=== PATIENT | male | born 1975 | race Two or more races ===

== ENCOUNTER 2017-07-15 12:53 | Inpatient (IN) | payer OTHER ==
[2017-07-15 16:28] VITALS: BMI 26.4
--- NOTE | 2017-07-15 16:48 | HP ---
COWS - Scale Resting Pulse: 0= SD 80 or Below Sweatin=Flushed/Facial Moisture Restless Observation: 1= Difficult to Sit Still Pupil Size: 0= Normal to Room Light Bone or Joint Aches: 2= Severe Diffuse Aches Runny Nose/ Eye Tearin= Runny Nose/Eyes GI Upset > 30mins: 2= Nausea/Diarrhea Tremor Observation: 2= Slight Tremor Visible Yawning Observation: 2= >3x During Session Anxiety or Irritability: 2=Irritable/Anxious Goose Flesh Skin: 3=Piloerection COWS Score: 18 Admission ROS [facility] Chief Complaint: I am here for detox. Allergies/Adverse Reactions: Allergies Allergy/AdvReac Type Severity Reaction Status Date / Time No Known Allergies Allergy Verified 07/15/17 16:36 History of Present Illness: pt is a 42ry old male with a history of heroin and cocaine dependence seeking detox for treatment. Exam Limitations: No Limitations - Ebola screening Have you traveled outside of the country in the last 21 days: No (N) Have you had contact with anyone from an Ebola affected area: No Have you been sick,other than usual withdrawal symptoms: No Do you have a fever: No - Review of Systems Constitutional: Chills, Loss of Appetite, Changes in sleep, Unintentional Wgt. Loss EENT: reports: Tearing, Nose Congestion Respiratory: reports: No Symptoms reported Cardiac: reports: No Symptoms Reported GI: reports: Diarrhea, Nausea, Poor Appetite, Poor Fluid Intake : reports: No Symptoms Reported Musculoskeletal: reports: No Symptoms Reported Integumentary: reports: Flushing, Sweating Neuro: reports: Headache, Tingling, Tremors Endocrine: reports: Excessive Sweating, Flushing, Intolerance to Cold, Intolerance to Heat Hematology: reports: No Symptoms Reported Psychiatric: reports: Judgement Intact, Mood/Affect Appropiate, Orientated x3, Agitated, Anxious Other Systems: Reviewed and Negative Patient History - Patient Medical History Hx Anemia: No Hx Asthma: No Hx Chronic Obstructive Pulmonary Disease (COPD): No Hx Cancer: No Hx Cardiac Disorders: No Hx Congestive Heart Failure: No Hx Hypertension: No Hx Hypercholesterolemia: No Hx Pacemaker: No HX Cerebrovascular Accident: No Hx Seizures: No Hx Dementia: No Hx Diabetes: No Hx Gastrointestinal Disorders: No Hx Liver Disease: No Hx Genitourinary Disorders: No Hx Sexually Transmitted Disorders: No Hx Renal Disease (ESRD): No Hx Thyroid Disease: No Hx Human Immunodeficiency Virus (HIV): No (negative) Hx Hepatitis C: No Hx Depression: No Hx Suicide Attempt: No (denies) Hx Bipolar Disorder: No Hx Schizophrenia: No Other Medical History: anxiety - Patient Surgical History Past Surgical History: No - PPD History Previous Implant?: Yes Documented Results: Negative w/o proof Implanted On Prior [facility] Admission?: No PPD to be Administered?: Yes - Reproductive History Patient is a Female of Child Bearing Age (11 -55 yrs old): No - Smoking Cessation Smoking history: Current every day smoker Have you smoked in the past 12 months: Yes Aproximately how many cigarettes per day: 10 Hx Chewing Tobacco Use: No Initiated information on smoking cessation: Yes 'Breaking Loose' booklet given: 07/15/17 - Substance & Tx. History Hx Alcohol Use: No Hx Substance Use: Yes Substance Use Type: Cocaine, Heroin Hx Substance Use Treatment: Yes (last detox 1999 [facility]) - Substances Abused Heroin Route: Injection Frequency: Daily Amount used: 7 bags Age of first use: 20 Date of Last Use: 07/15/17 Cocaine Route: Injection Frequency: Daily Amount used: $70 Age of first use: 17 Date of Last Use: 07/14/17 Family Disease History - Family Disease History Family History: Denies Admission Physical Exam S - Vital Signs Vital Signs: Vital Signs - 24 hr 07/15/17 16:25 Temperature 97.4 F L Pulse Rate 74 Respiratory 19 Rate Blood Pressure 118/67 - Physical General Appearance: Yes: Appropriately Dressed, Moderate Distress, Tremorous, Irritable, Sweating, Anxious HEENTM: Yes: Hearing grossly Normal, Normal Voice, Nasal Congestion, Rhinorrhea Respiratory: Yes: Lungs Clear, Normal Breath Sounds, No Respiratory Distress Neck: Yes: No masses,lesions,Nodules Breast: Yes: Within Normal Limits Cardiology: Yes: Regular Rhythm, Regular Rate, S1, S2 Abdominal: Yes: Normal Bowel Sounds, Non Tender, Soft Genitourinary: Yes: Within Normal Limits Back: Yes: Normal Inspection Musculoskeletal: Yes: Back pain Extremities: Yes: Normal Capillary Refill, Normal Inspection, Tremors Neurological: Yes: Fully Oriented, Alert, Normal Response Integumentary: Yes: Normal Color, Diaphoresis, Track [place] Lymphatic: Yes: Within Normal Limits - Diagnostic (1) Opioid dependence with withdrawal Current Visit: Yes Status: Chronic (2) Cocaine dependence Current Visit: Yes Status: Chronic Qualifiers: Substance use status: uncomplicated Qualified Code(s): F14.20 - Cocaine dependence, uncomplicated (3) Nicotine dependence Current Visit: Yes Status: Chronic Qualifiers: Nicotine product type: cigarettes Substance use status: uncomplicated Qualified Code(s): F17.210 - Nicotine dependence, cigarettes, uncomplicated Cleared for Admission S - Detox or Rehab [facility] Level of Care: Medically Managed Detox Regimen/Protocol: Methadone [facility] Breath Alcohol Content Breath Alcohol Content: 0 Urine Drug Screen - Results Drug Screen Negative: No Urine Drug Screen Results: LIANG-Cocaine, OPI-Opiates
[2017-07-15] MEDS ORDERED: MAG HYDROX/AL HYDROX/SIMETH 30 ML UNIT-DOSE CUP PO PRN (16:49)
[2017-07-15] MEDS ORDERED: MAGNESIUM CITRATE 300 ML BOTTLE PO PRN (16:49)
[2017-07-15] MEDS ORDERED: ACETAMINOPHEN 325 MG TABLET (FP) PO PRN (16:49)
[2017-07-15] MEDS ORDERED: LOPERAMIDE HCL 2 MG CAPSULE PO PRN (16:49)
[2017-07-15] MEDS ORDERED: P-EPHED 60MG/TRIPROLIDI 2.5MG TABLET PO PRN (16:49)
[2017-07-15] MEDS ORDERED: IBUPROFEN 400 MG TABLET (FP) PO PRN (16:49)
[2017-07-15] MEDS ORDERED: NICOTINE POLACRILEX 4 MG GUM BC PRN (16:49)
[2017-07-15] MEDS ORDERED: guaiFENesin/D-METHORPHAN HB 10 ML UNIT-DOSE CUPS PO PRN (16:49)
[2017-07-15] MEDS ORDERED: MAGNESIUM HYDROX 2400MG/30ML ORAL SUSPENSION 30 ML CUP PO PRN (16:49)
[2017-07-15] MEDS ORDERED: MENTHOL/PHENOL 1 EACH UD MM PRN (16:49)
[2017-07-15] MEDS: diazePAM 5 MG TABLET PO PRN ×2 (18:14→22:15)
[2017-07-15] MEDS ORDERED: METHADONE HCL 10 MG TABLET (FOR DETOX USE ONLY) PO ONE ×2 (18:15→23:00)
[2017-07-15] MEDS: THIAMINE HCL 100 MG TABLET (FP) PO SCH (22:15)
[2017-07-15 23:20] LABS: URINE APPEARANCE TURBID; URINE BILIRUBIN NEGATIVE (NEGATIVE); URINE BLOOD NEGATIVE (NEGATIVE); URINE COLOR YELLOW; URINE GLUCOSE (UA) NEGATIVE (NEGATIVE); URINE KETONE 1+ (NEGATIVE); URINE LEUK ESTERASE NEGATIVE (NEGATIVE); URINE NITRITE NEGATIVE (NEGATIVE); URINE PROTEIN NEGATIVE (NEGATIVE); URINE UROBILINOGEN NEGATIVE mg/dL (0.2-1.0)
[2017-07-16] MEDS: diazePAM 5 MG TABLET PO PRN ×5 (02:08→22:05)
[2017-07-16] MEDS ORDERED: METHADONE HCL 10 MG TABLET (FOR DETOX USE ONLY) PO ONE (10:00)
[2017-07-16] MEDS: NICOTINE 21 MG/24 HOURS TOPICAL PATCH TD SCH (10:02)
[2017-07-16] MEDS: PRENATAL VITAMINS W/ FOLIC ACID TABLET (FP) PO SCH (10:02)
[2017-07-16 10:34] LABS: ALBUMIN 3.3 g/dl (3.4-5.0); ANION GAP 8 (8-16); BLOOD UREA NITROGEN 16 mg/dL (7-18); CHLORIDE 105 mmol/L (98-107); CO2 27 mmol/L (21-32); GLUCOSE,RANDOM 97 mg/dL (74-106); POTASSIUM 3.7 mmol/L (3.5-5.1); SODIUM 140 mmol/L (136-145)
[2017-07-16 10:38] LABS: HEMATOCRIT 41.9 % (35.4-49); HEMOGLOBIN 13.9 GM/dL (11.7-16.9); MCH 32.8 pg (25.7-33.7); MCHC 33.2 g/dl (32.0-35.9); MEAN CELL VOLUME 98.6 fl (80-96); MEAN PLT VOLUME 10.5 fl (7.5-11.1); PLATELET COUNT 142 K/MM3 (134-434); RBC 4.25 M/mm3 (4.00-5.60); RDW 12.5 % (11.9-15.9); WHITE BLOOD COUNT 5.8 K/mm3 (4.0-10.0)
[2017-07-16 10:42] LABS: ALK PHOS 96 U/L (45-117); BILIRUBIN,TOTAL 0.3 mg/dL (0.2-1.0); CALCIUM 8.4 mg/dL (8.5-10.1); CREATININE 0.8 mg/dL (0.7-1.3); SGOT/AST 18 U/L (15-37); SGPT/ALT 28 U/L (12-78); TOT PROT 6.8 g/dl (6.4-8.2)
--- NOTE | 2017-07-16 10:45 | EKG ---
Test Reason : Blood Pressure : / mmHG Vent. Rate : 064 BPM Atrial Rate : 064 BPM P-R Int : 126 ms QRS Dur : 086 ms QT Int : 394 ms P-R-T Axes : 065 072 051 degrees QTc Int : 406 ms NORMAL SINUS RHYTHM MODERATE VOLTAGE CRITERIA FOR LVH, MAY BE NORMAL VARIANT BORDERLINE ECG NO PREVIOUS ECGS AVAILABLE Confirmed by SWAPNIL TRIPP MD ([id number]) on 07/16/2017 10:44:51 AM Referred By: Confirmed By:SWAPNIL TRIPP MD
--- NOTE | 2017-07-16 11:32 | PN ---
BHS COWS - Scale Resting Pulse: 1= [place] 81-100 Sweatin= Chills/Flushing Restless Observation: 0= Sits Still Pupil Size: 0= Normal to Room Light Bone or Joint Aches: 2= Severe Diffuse Aches Runny Nose/ Eye Tearin= None GI Upset > 30mins: 1= Stomach Cramp Tremor Observation of Outstretched Hands: 2= Slight Tremor Visible Yawning Observation: 1= 1-2x During Session Anxiety or Irritability: 2=Irritable/Anxious Goose Flesh Skin: 3=Piloerection COWS Score: 13 BHS Progress Note (SOAP) Subjective: Sweating, Tremors, Body Aches. Objective: PT. A & O X 3, OBSERVED AMBULATING ON UNIT. NO ACUTE DISTRESS. 07/16/17 11:30 Vital Signs Temperature 97.1 F L 07/16/17 09:22 Pulse Rate 81 07/16/17 09:22 Respiratory Rate 18 07/16/17 09:22 Blood Pressure 121/75 07/16/17 09:22 O2 Sat by Pulse Oximetry (%) Laboratory Tests 07/15/17 07/16/17 07/16/17 19:50 07:00 07:00 WBC 5.8 RBC 4.25 Hgb 13.9 Hct 41.9 MCV 98.6 H MCH 32.8 MCHC 33.2 RDW 12.5 Plt Count 142 MPV 10.5 Sodium 140 Potassium 3.7 Chloride 105 Carbon Dioxide 27 Anion Gap 8 BUN 16 Creatinine 0.8 Creat Clearance w eGFR > 60 Random Glucose 97 Calcium 8.4 L Total Bilirubin 0.3 AST 18 ALT 28 Alkaline Phosphatase 96 Total Protein 6.8 Albumin 3.3 L Urine Color Yellow Urine Appearance Turbid Urine pH 5.0 Ur Specific [place] 1.026 Urine Protein Negative Urine Glucose (UA) Negative Urine Ketones 1+ H Urine Blood Negative Urine Nitrite Negative Urine Bilirubin Negative Urine Urobilinogen Negative Ur Leukocyte Esterase Negative LABS NOTED. RPR RESULT PENDING. 07/16/17 11:31 Assessment: 07/16/17 11:30 WITHDRAWAL SYMPTOMS. Plan: CONTINUE DETOX.
--- NOTE | 2017-07-16 16:31 | CONSULT ---
[facility] Psychiatric Consult - Data Date of interview: 07/16/17 Admission source: [facility] Identifying data: Pt. is a 42 year old scottish male, single, without kids, and currently unemployed. This is patient's first admission to [facility]. Pt. admitted to for cocaine and heroin dependency. Substance Abuse History: Following information confirmed with Mr. Myers: Smoking Cessation. Smoking history: Current every day smoker. Have you smoked in the past 12 months: Yes. Aproximately how many cigarettes per day: 10. Hx Chewing Tobacco Use: No. Initiated information on smoking cessation: Yes. ' Breaking Loose' booklet given: 07/15/17. - Substance & Tx. History. Hx Alcohol Use: No. Hx Substance Use: Yes. Substance Use Type: Cocaine, Heroin. Hx Substance Use Treatment: Yes (last detox 1999 [facility]). - Substances Abused. Heroin. Route: Injection. Frequency: Daily. Amount used: 7 bags. Age of first use: 20. Date of Last Use: 07/15/17. Cocaine. Route: Injection. Frequency: Daily. Amount used: $70. Age of first use: 17. Date of Last Use: 07/14/17 Medical History: Denies. Psychiatric History: Pt. denies h/o psychiatric hospitalization and suicide attempt. States his first encounter with a psychiatrist was 15 years ago and is currently provided psychiatric care at the [facility]. Pt. reports a dignosis of Bipolar disorder, mood disorder and anxiety. States he is prescribed seroquel 100mg and another medication he is unable to remember. Physical/Sexual Abuse/Trauma History: Denies. Mental Status Exam - Mental Status Exam Alert and Oriented to: Time, Place, Person Cognitive Function: Good Patient Appearance: Unkempt Mood: Euthymic Affect: Mood Congruent Patient Behavior: Fatigued, Cooperative Speech Pattern: Delayed Voice Loudness: Normal Thought Process: Goal Oriented Thought Disorder: Not Present Hallucinations: Denies Suicidal Ideation: Denies Homicidal Ideation: Denies Insight/Judgement: Poor Sleep: Poorly Appetite: Fair Muscle strength/Tone: Normal Gait/Station: Normal Psychiatric Findings - Problem List ([place] 1, 2,3) (1) Cocaine dependence Current Visit: Yes Status: Acute Qualifiers: Substance use status: uncomplicated Qualified Code(s): F14.20 - Cocaine dependence, uncomplicated (2) Nicotine dependence Current Visit: Yes Status: Chronic Qualifiers: Nicotine product type: cigarettes Substance use status: uncomplicated Qualified Code(s): F17.210 - Nicotine dependence, cigarettes, uncomplicated (3) Opioid dependence with withdrawal Current Visit: Yes Status: Acute (4) Bipolar disorder Current Visit: Yes Status: Chronic Comment: Self reports. (5) Mood disorder Current Visit: No Status: Chronic Comment: Self reports. - Initial Treatment Plan Initial Treatment Plan: Psychoeducation provided. Detoxification provided. Seroquel 50mg qhs ordered. Benefits and side effects discussed. Verbal consent given. Will continue to monitor.
[2017-07-16] MEDS: hydrOXYzine PAMOATE 50 MG CAPSULE (FP) PO PRN (17:49)
[2017-07-16] MEDS: QUEtiapine FUMARATE 50 MG TABLET PO SCH (22:05)
[2017-07-16] MEDS: THIAMINE HCL 100 MG TABLET (FP) PO SCH (22:05)
[2017-07-17] MEDS ORDERED: METHADONE HCL 5 MG TABLET (FOR DETOX USE ONLY) PO ONE (10:00)
[2017-07-17] MEDS: diazePAM 5 MG TABLET PO PRN ×4 (10:05→22:02)
[2017-07-17] MEDS: PRENATAL VITAMINS W/ FOLIC ACID TABLET (FP) PO SCH (10:05)
[2017-07-17] MEDS: NICOTINE 21 MG/24 HOURS TOPICAL PATCH TD SCH (10:06)
--- NOTE | 2017-07-17 11:39 | PN ---
S COWS - Scale Resting Pulse: 1= [place] 81-100 Sweatin= Chills/Flushing Restless Observation: 1= Difficult to Sit Still Pupil Size: 0= Normal to Room Light Bone or Joint Aches: 2= Severe Diffuse Aches Runny Nose/ Eye Tearin= Nasal Congestion GI Upset > 30mins: 0= None Tremor Observation of Outstretched Hands: 2= Slight Tremor Visible Yawning Observation: 1= 1-2x During Session Anxiety or Irritability: 2=Irritable/Anxious Goose Flesh Skin: 3=Piloerection COWS Score: 14 BHS Progress Note (SOAP) Subjective: Sweating, Tremors, Body Aches. Objective: PT. A & O X 3. NO ACUTE DISTRESS. 07/17/17 11:40 Vital Signs Temperature 96.1 F L 07/17/17 09:11 Pulse Rate 82 07/17/17 09:11 Respiratory Rate 18 07/17/17 09:11 Blood Pressure 127/75 07/17/17 09:11 O2 Sat by Pulse Oximetry (%) Laboratory Tests 07/15/17 07/16/17 07/16/17 19:50 07:00 07:00 WBC 5.8 RBC 4.25 Hgb 13.9 Hct 41.9 MCV 98.6 H MCH 32.8 MCHC 33.2 RDW 12.5 Plt Count 142 MPV 10.5 Sodium 140 Potassium 3.7 Chloride 105 Carbon Dioxide 27 Anion Gap 8 BUN 16 Creatinine 0.8 Creat Clearance w eGFR > 60 Random Glucose 97 Calcium 8.4 L Total Bilirubin 0.3 AST 18 ALT 28 Alkaline Phosphatase 96 Total Protein 6.8 Albumin 3.3 L Urine Color Yellow Urine Appearance Turbid Urine pH 5.0 Ur Specific [place] 1.026 Urine Protein Negative Urine Glucose (UA) Negative Urine Ketones 1+ H Urine Blood Negative Urine Nitrite Negative Urine Bilirubin Negative Urine Urobilinogen Negative Ur Leukocyte Esterase Negative RPR Titer 07/16/17 07:00 WBC RBC Hgb Hct MCV MCH MCHC RDW Plt Count MPV Sodium Potassium Chloride Carbon Dioxide Anion Gap BUN Creatinine Creat Clearance w eGFR Random Glucose Calcium Total Bilirubin AST ALT Alkaline Phosphatase Total Protein Albumin Urine Color Urine Appearance Urine pH Ur Specific [place] Urine Protein Urine Glucose (UA) Urine Ketones Urine Blood Urine Nitrite Urine Bilirubin Urine Urobilinogen Ur Leukocyte Esterase RPR Titer Nonreactive LABS NOTED. Assessment: 07/17/17 11:40 WITHDRAWAL SYMPTOMS. Plan: CONTINUE DETOX. INCREASE DAILY PO FLUID INTAKE.
[2017-07-17] MEDS: THIAMINE HCL 100 MG TABLET (FP) PO SCH (22:02)
[2017-07-17] MEDS: QUEtiapine FUMARATE 50 MG TABLET PO SCH (22:02)
[2017-07-18] MEDS: diazePAM 5 MG TABLET PO PRN ×3 (05:09→14:38)
[2017-07-18] MEDS ORDERED: METHADONE HCL 5 MG TABLET (FOR DETOX USE ONLY) PO ONE (10:00)
[2017-07-18] MEDS: NICOTINE 21 MG/24 HOURS TOPICAL PATCH TD SCH (10:44)
[2017-07-18] MEDS: PRENATAL VITAMINS W/ FOLIC ACID TABLET (FP) PO SCH (10:44)
--- NOTE | 2017-07-18 12:09 | PN ---
BHS Progress Note (SOAP) Subjective: Fatigue, Sweating, Interrupted Sleep. Objective: PT. A & O X 3, OBSERVED AMBULATING ON UNIT. NO ACUTE DISTRESS. 07/18/17 12:07 Vital Signs Temperature 98.3 F 07/18/17 09:49 Pulse Rate 101 H 07/18/17 09:49 Respiratory Rate 18 07/18/17 09:49 Blood Pressure 127/79 07/18/17 09:49 O2 Sat by Pulse Oximetry (%) Laboratory Tests 07/15/17 07/16/17 07/16/17 19:50 07:00 07:00 WBC 5.8 RBC 4.25 Hgb 13.9 Hct 41.9 MCV 98.6 H MCH 32.8 MCHC 33.2 RDW 12.5 Plt Count 142 MPV 10.5 Sodium 140 Potassium 3.7 Chloride 105 Carbon Dioxide 27 Anion Gap 8 BUN 16 Creatinine 0.8 Creat Clearance w eGFR > 60 Random Glucose 97 Calcium 8.4 L Total Bilirubin 0.3 AST 18 ALT 28 Alkaline Phosphatase 96 Total Protein 6.8 Albumin 3.3 L Urine Color Yellow Urine Appearance Turbid Urine pH 5.0 Ur Specific [place] 1.026 Urine Protein Negative Urine Glucose (UA) Negative Urine Ketones 1+ H Urine Blood Negative Urine Nitrite Negative Urine Bilirubin Negative Urine Urobilinogen Negative Ur Leukocyte Esterase Negative RPR Titer 07/16/17 07:00 WBC RBC Hgb Hct MCV MCH MCHC RDW Plt Count MPV Sodium Potassium Chloride Carbon Dioxide Anion Gap BUN Creatinine Creat Clearance w eGFR Random Glucose Calcium Total Bilirubin AST ALT Alkaline Phosphatase Total Protein Albumin Urine Color Urine Appearance Urine pH Ur Specific [place] Urine Protein Urine Glucose (UA) Urine Ketones Urine Blood Urine Nitrite Urine Bilirubin Urine Urobilinogen Ur Leukocyte Esterase RPR Titer Nonreactive LABS NOTED. Assessment: 07/18/17 12:08 WITHDRAWAL SYMPTOMS. Plan: CONTINUE DETOX. INCREASE DAILY PO FLUID INTAKE.
[2017-07-18] MEDS: hydrOXYzine PAMOATE 50 MG CAPSULE (FP) PO PRN ×2 (17:42→22:15)
[2017-07-18] MEDS: QUEtiapine FUMARATE 50 MG TABLET PO SCH (22:15)
[2017-07-18] MEDS: THIAMINE HCL 100 MG TABLET (FP) PO SCH (22:15)
[2017-07-19] MEDS ORDERED: METHADONE HCL 10 MG TABLET (FOR DETOX USE ONLY) PO ONE (10:00)
[2017-07-19] MEDS: NICOTINE 21 MG/24 HOURS TOPICAL PATCH TD SCH (10:05)
[2017-07-19] MEDS: PRENATAL VITAMINS W/ FOLIC ACID TABLET (FP) PO SCH (10:05)
--- NOTE | 2017-07-19 16:22 | PN ---
BHS Progress Note (SOAP) Subjective: Fatigue, Sweating, Interrupted Sleep. Objective: PT. A & O X 3, OBSERVED AMBULATING ON UNIT. NO ACUTE DISTRESS. 07/19/17 16:19 Vital Signs Temperature 96.4 F L 07/19/17 09:28 Pulse Rate 83 07/19/17 09:28 Respiratory Rate 18 07/19/17 13:14 Blood Pressure 122/78 07/19/17 09:28 O2 Sat by Pulse Oximetry (%) Laboratory Tests 07/15/17 07/16/17 07/16/17 19:50 07:00 07:00 WBC 5.8 RBC 4.25 Hgb 13.9 Hct 41.9 MCV 98.6 H MCH 32.8 MCHC 33.2 RDW 12.5 Plt Count 142 MPV 10.5 Sodium 140 Potassium 3.7 Chloride 105 Carbon Dioxide 27 Anion Gap 8 BUN 16 Creatinine 0.8 Creat Clearance w eGFR > 60 Random Glucose 97 Calcium 8.4 L Total Bilirubin 0.3 AST 18 ALT 28 Alkaline Phosphatase 96 Total Protein 6.8 Albumin 3.3 L Urine Color Yellow Urine Appearance Turbid Urine pH 5.0 Ur Specific [place] 1.026 Urine Protein Negative Urine Glucose (UA) Negative Urine Ketones 1+ H Urine Blood Negative Urine Nitrite Negative Urine Bilirubin Negative Urine Urobilinogen Negative Ur Leukocyte Esterase Negative RPR Titer 07/16/17 07:00 WBC RBC Hgb Hct MCV MCH MCHC RDW Plt Count MPV Sodium Potassium Chloride Carbon Dioxide Anion Gap BUN Creatinine Creat Clearance w eGFR Random Glucose Calcium Total Bilirubin AST ALT Alkaline Phosphatase Total Protein Albumin Urine Color Urine Appearance Urine pH Ur Specific [place] Urine Protein Urine Glucose (UA) Urine Ketones Urine Blood Urine Nitrite Urine Bilirubin Urine Urobilinogen Ur Leukocyte Esterase RPR Titer Nonreactive LABS NOTED. Assessment: 07/19/17 16:19 WITHDRAWAL SYMPTOMS. Plan: CONTINUE DETOX. INCREASE DAILY PO FLUID INTAKE.
[2017-07-19] MEDS: QUEtiapine FUMARATE 50 MG TABLET PO SCH (22:05)
[2017-07-19] MEDS: THIAMINE HCL 100 MG TABLET (FP) PO SCH (22:06)
[2017-07-20] MEDS ORDERED: METHADONE HCL 5 MG TABLET (FOR DETOX USE ONLY) PO ONE (06:00)
[2017-07-20] MEDS: PRENATAL VITAMINS W/ FOLIC ACID TABLET (FP) PO SCH (10:08)
[2017-07-20] MEDS: NICOTINE 21 MG/24 HOURS TOPICAL PATCH TD SCH (10:08)
--- NOTE | 2017-07-20 15:30 | PN ---
BHS Progress Note (SOAP) Subjective: Anxious, stomach ache, nausea, interrupted sleep. Objective: 07/20/17 15:29 Last Vital Signs Temp Pulse Resp BP Pulse Ox 98.7 F 87 18 117/77 07/20/17 13:19 07/20/17 13:19 07/20/17 13:19 07/20/17 13:19 Laboratory Tests 07/15/17 07/16/17 07/16/17 19:50 07:00 07:00 WBC 5.8 RBC 4.25 Hgb 13.9 Hct 41.9 MCV 98.6 H MCH 32.8 MCHC 33.2 RDW 12.5 Plt Count 142 MPV 10.5 Sodium 140 Potassium 3.7 Chloride 105 Carbon Dioxide 27 Anion Gap 8 BUN 16 Creatinine 0.8 Creat Clearance w eGFR > 60 Random Glucose 97 Calcium 8.4 L Total Bilirubin 0.3 AST 18 ALT 28 Alkaline Phosphatase 96 Total Protein 6.8 Albumin 3.3 L Urine Color Yellow Urine Appearance Turbid Urine pH 5.0 Ur Specific [place] 1.026 Urine Protein Negative Urine Glucose (UA) Negative Urine Ketones 1+ H Urine Blood Negative Urine Nitrite Negative Urine Bilirubin Negative Urine Urobilinogen Negative Ur Leukocyte Esterase Negative RPR Titer 07/16/17 07:00 WBC RBC Hgb Hct MCV MCH MCHC RDW Plt Count MPV Sodium Potassium Chloride Carbon Dioxide Anion Gap BUN Creatinine Creat Clearance w eGFR Random Glucose Calcium Total Bilirubin AST ALT Alkaline Phosphatase Total Protein Albumin Urine Color Urine Appearance Urine pH Ur Specific [place] Urine Protein Urine Glucose (UA) Urine Ketones Urine Blood Urine Nitrite Urine Bilirubin Urine Urobilinogen Ur Leukocyte Esterase RPR Titer Nonreactive Labs noted Assessment: 07/20/17 15:30 Withdrawal symptoms Plan: Continue detox Encouraged to drink more water for hydration
[2017-07-20] MEDS: QUEtiapine FUMARATE 50 MG TABLET PO SCH (22:03)
[2017-07-20] MEDS: THIAMINE HCL 100 MG TABLET (FP) PO SCH (22:03)
--- NOTE | 2017-07-21 08:45 | DS ---
[facility] Detox Discharge Summary Admission Date: 07/15/17 Discharge Date: 07/21/17 - History Present History: Opioid Dependence Additional Comments: DETOX COMPLETED. ALERT O X 3. NAD. REFERRED TO REHAB. Pertinent Past History: HX DEPRESSION - Physical Exam Results Vital Signs: Vital Signs Temperature 97.1 F L 07/21/17 06:21 Pulse Rate 69 07/21/17 06:21 Respiratory Rate 16 07/21/17 06:21 Blood Pressure 109/65 07/21/17 06:21 O2 Sat by Pulse Oximetry (%) Pertinent Admission Physical Exam Findings: WITHDRAWAL SX Laboratory Last Values WBC 5.8 K/mm3 (4.0-10.0) 07/16/17 07:00 RBC 4.25 M/mm3 (4.00-5.60) 07/16/17 07:00 Hgb 13.9 GM/dL (11.7-16.9) 07/16/17 07:00 Hct 41.9 % (35.4-49) 07/16/17 07:00 MCV 98.6 fl (80-96) H 07/16/17 07:00 MCH 32.8 pg (25.7-33.7) 07/16/17 07:00 MCHC 33.2 g/dl (32.0-35.9) 07/16/17 07:00 RDW 12.5 % (11.9-15.9) 07/16/17 07:00 Plt Count 142 K/MM3 (134-434) 07/16/17 07:00 MPV 10.5 fl (7.5-11.1) 07/16/17 07:00 Sodium 140 mmol/L (136-145) 07/16/17 07:00 Potassium 3.7 mmol/L (3.5-5.1) 07/16/17 07:00 Chloride 105 mmol/L (98-107) 07/16/17 07:00 Carbon Dioxide 27 mmol/L (21-32) 07/16/17 07:00 Anion Gap 8 (8-16) 07/16/17 07:00 BUN 16 mg/dL (7-18) 07/16/17 07:00 Creatinine 0.8 mg/dL (0.7-1.3) 07/16/17 07:00 Creat Clearance w eGFR > 60 (>60) 07/16/17 07:00 Random Glucose 97 mg/dL (74-106) 07/16/17 07:00 Calcium 8.4 mg/dL (8.5-10.1) L 07/16/17 07:00 Total Bilirubin 0.3 mg/dL (0.2-1.0) 07/16/17 07:00 AST 18 U/L (15-37) 07/16/17 07:00 ALT 28 U/L (12-78) 07/16/17 07:00 Alkaline Phosphatase 96 U/L (45-117) 07/16/17 07:00 Total Protein 6.8 g/dl (6.4-8.2) 07/16/17 07:00 Albumin 3.3 g/dl (3.4-5.0) L 07/16/17 07:00 Urine Color Yellow 07/15/17 19:50 Urine Appearance Turbid 07/15/17 19:50 Urine pH 5.0 (5.0-8.0) 07/15/17 19:50 Ur Specific [place] 1.026 (1.001-1.035) 07/15/17 19:50 Urine Protein Negative (NEGATIVE) 07/15/17 19:50 Urine Glucose (UA) Negative (NEGATIVE) 07/15/17 19:50 Urine Ketones 1+ (NEGATIVE) H 07/15/17 19:50 Urine Blood Negative (NEGATIVE) 07/15/17 19:50 Urine Nitrite Negative (NEGATIVE) 07/15/17 19:50 Urine Bilirubin Negative (NEGATIVE) 07/15/17 19:50 Urine Urobilinogen Negative mg/dL (0.2-1.0) 07/15/17 19:50 Ur Leukocyte Esterase Negative (NEGATIVE) 07/15/17 19:50 RPR Titer Nonreactive (NONREACTIVE) 07/16/17 07:00 - Treatment Hospital Course: Detox Protocol Followed, Detoxed Safely, Responded well, Discharged Condition Good, Rehab Referral Accepted Patient has Accepted a Rehab Referral to: [address] - Medication Discharge Medications: Ambulatory Orders NK [No Known Home Medication] 07/15/17 - Diagnosis (1) Cocaine dependence Current Visit: Yes Status: Acute Qualifiers: Substance use status: uncomplicated Qualified Code(s): F14.20 - Cocaine dependence, uncomplicated (2) Opioid dependence with withdrawal Current Visit: Yes Status: Acute (3) Nicotine dependence Current Visit: Yes Status: Acute Qualifiers: Nicotine product type: cigarettes Substance use status: in withdrawal Qualified Code(s): F17.213 - Nicotine dependence, cigarettes, with withdrawal - AMA Did Patient Leave Against Medical Advice: No
[2017-07-21 09:39] VITALS: BP 128/81; PULSE 91; TEMP 96.3
[2017-07-21] MEDS: PRENATAL VITAMINS W/ FOLIC ACID TABLET (FP) PO SCH (10:38)
[2017-07-21] MEDS: NICOTINE 21 MG/24 HOURS TOPICAL PATCH TD SCH (10:38)
== END 2017-07-21 11:16 | disposition other institution (70) | DRG 773 ==
LOC: YASAS 12:53 → Y3N 17:02
PROVIDERS: ADMIT Internal Medicine; ATTEND Internal Medicine
PROC: HZ2ZZZZ Detoxification Services for Substance Abuse Treatment (ICD-10-PCS; principal; 2017-07-15)
DX: F11.23 Opioid dependence with withdrawal (principal); F14.20 Cocaine dependence, uncomplicated; F17.213 Nicotine dependence, cigarettes, with withdrawal; F31.9 Bipolar disorder, unspecified; F39 Unspecified mood [affective] disorder
CPT/HCPCS: 36415; 80053; 81003; 85027; 86593; 93005; 93010

== ENCOUNTER 2017-07-21 11:11 | Inpatient (IN) | payer OTHER ==
[2017-07-21 12:40] VITALS: BMI 28.4
[2017-07-21] MEDS ORDERED: MAGNESIUM HYDROX 2400MG/30ML ORAL SUSPENSION 30 ML CUP PO PRN (12:48)
[2017-07-21] MEDS ORDERED: guaiFENesin/D-METHORPHAN HB 10 ML UNIT-DOSE CUPS PO PRN (12:48)
[2017-07-21] MEDS ORDERED: LOPERAMIDE HCL 2 MG CAPSULE PO PRN (12:48)
[2017-07-21] MEDS ORDERED: MAGNESIUM CITRATE 300 ML BOTTLE PO PRN (12:48)
[2017-07-21] MEDS ORDERED: MAG HYDROX/AL HYDROX/SIMETH 30 ML UNIT-DOSE CUP PO PRN (12:48)
[2017-07-21] MEDS ORDERED: MENTHOL/PHENOL 1 EACH UD MM PRN (12:48)
[2017-07-21] MEDS ORDERED: P-EPHED 60MG/TRIPROLIDI 2.5MG TABLET PO PRN (12:48)
--- NOTE | 2017-07-21 13:08 | PN ---
S Progress Note Note: Wants to start Suboxone will begin 4 mg last methadone 48h discussed risks of precipitated withdrawal follow up plan at [facility]
--- NOTE | 2017-07-21 13:26 | HP ---
Psychiatrist Admission - Data Date of interview: 07/21/17 Admission source: 3N Identifying data: This is the first [facility] for this 42 yeard old single [employer] male, unemployed on food stamp, domiciled living with his aunt Medical History: Significant fo hepatitis C. Smokes 10 cigarettes daily Psychiatric History: Reports that all his psychiatric contact occured while incarcerated. Claims that his first psychiatric contact was in 2003, he was diagnosed with Mood Disorder, depression and anxiety and he was prescribed Remeron, Ambien, Vistaril and Buspar. His last psychiatric contact was when he was incarcerated in [facility]. He was released in May on Risperdal and Ambien. He has been off medication since release. He saw [facility] psych on 07/16/17 while in detox and was prescribed Seroquel 100 mg po HS.He told him that he was prescribed that medication by a psychiatrist at the [facility]. Denies previous psychiatric hospitalization or suicidal attempt. At present, reports feeling anxious and sleping poorly despite taking Seroquel 50 mg po HS Physical/Sexual Abuse/Trauma History: Denies history of verbal, physical or sexual abuse as well as DV relationship Additional Comment: Reports history of multiple previous arrests including 4 felony convictions. Reports being on parole till August 2018 Vital Signs: Vital Signs - 24 hr 07/21/17 12:27 Temperature 97.1 F L Pulse Rate 86 Respiratory 18 Rate Blood Pressure 135/82 Allergies/Adverse Reactions: Allergies Allergy/AdvReac Type Severity Reaction Status Date / Time No Known Allergies Allergy Verified 07/21/17 12:24 Date of last physical exam: 07/15/17 Concur with the findings of this exam: Yes - Substance Abuse/Tx History Hx Alcohol Use: No Hx Substance Use: Yes Substance Use Type: Cocaine (Started using cocaine at age 17, consumes $70 worth daily. Last used on 07/14/17), Heroin (Started using herin at age 20, consumes 7 bags daily. Last used on 07/15/17), Tranquilizers (Started using klonopin at age 16, consumes 1-2 tabs 1-2 times weekly. Last on ) Mental Status Exam - Mental Status Exam Alert and Oriented to: Time, Place, Person Cognitive Function: Fair Patient Appearance: Well Groomed Mood: Anxious Affect: Appropriate Patient Behavior: Cooperative Speech Pattern: Clear Voice Loudness: Normal Thought Process: Intact, Goal Oriented Thought Disorder: Not Present Hallucinations: Denies Suicidal Ideation: Denies Homicidal Ideation: Denies Insight/Judgement: Fair Sleep: Poorly Appetite: Good Muscle strength/Tone: Normal Gait/Station: Normal Psychiatric Findings - Problem List ([place] 1, 2,3) (1) Opioid dependence Current Visit: Yes Status: Acute (2) Cocaine dependence Current Visit: Yes Status: Chronic Qualifiers: Substance use status: uncomplicated Qualified Code(s): F14.20 - Cocaine dependence, uncomplicated (3) Sedative, hypnotic or anxiolytic abuse Current Visit: Yes Status: Acute (4) Nicotine dependence Current Visit: Yes Status: Acute Qualifiers: Nicotine product type: cigarettes Substance use status: in withdrawal Qualified Code(s): F17.213 - Nicotine dependence, cigarettes, with withdrawal (5) Mood disorder Current Visit: No Status: Chronic Comment: Self reports. (6) Substance induced mood disorder Current Visit: Yes Status: Acute (7) Hepatitis C Current Visit: Yes Status: Chronic - Initial Treatment Plan Initial Treatment Plan: 1) Start Seroquel 100 mg po HS. 2) Monitor progress
[2017-07-21] MEDS: BUPRENORPHINE/NALOXONE 2 MG/0.5 MG FILM PACKET SL ONE ×2 (14:22→14:46)
--- NOTE | 2017-07-21 17:53 | HP ---
LASHON CAVANAUGH Rehab Assess/Revision - Admission History Admitted to Rehab from: [facility] Date of Admission to Rehab: 07/21/17 - Vital signs Vital Signs: Vital Signs Period Temp Pulse Resp BP Sys/Laws Pulse Ox Last 24 Hr 97.1 F 86 18 135/82 - Findings Detox History & Physical reviewed: Yes Concur with findings: Yes Comments/Additional Findings: COMPLETED DETOX TODAY ON . ADMIT TO REHAB.
--- NOTE | 2017-07-21 18:00 | HP ---
LASHON CAVANAUGH Rehab Assess/Revision - Vital signs Vital Signs: Vital Signs Period Temp Pulse Resp BP Sys/Laws Pulse Ox Last 24 Hr 97.1 F 86 18 135/82 Inpatient Rehab Admission - Initial Determination Are CD services needed?: Yes Free of communicable disease: Yes - Rehab Admission Criteria Patient is meeting Inpatient Rehab admission criteria:: Yes
[2017-07-21] MEDS: THIAMINE HCL 100 MG TABLET (FP) PO SCH (21:42)
[2017-07-21] MEDS: QUEtiapine FUMARATE 100 MG TABLET (FP) PO SCH (21:42)
[2017-07-22] MEDS: BUPRENORPHINE/NALOXONE 2 MG/0.5 MG FILM PACKET SL SCH (09:53)
[2017-07-22] MEDS: PRENATAL VITAMINS W/ FOLIC ACID TABLET (FP) PO SCH (09:53)
[2017-07-22] MEDS: NICOTINE 14 MG/24 HOURS TOPICAL PATCH TD SCH (09:53)
[2017-07-22] MEDS ORDERED: BUPRENORPHINE/NALOXONE 2 MG/0.5 MG FILM PACKET SL SCH (10:00)
--- NOTE | 2017-07-22 10:02 | PN ---
Psychiatric Progress Note Vital Signs: Vital Signs Period Temp Pulse Resp BP Sys/Laws Pulse Ox Last 24 Hr 97.1 F-97.5 F 74-86 18-20 117-135/71-82 Date of Session: 07/22/17 Chief Complaint:: Insomnia HPI: Patient addressing Opoid, Cocaine and Sedative Dependence comorbid with Nicotine Dependence and Mood Disorder ROS: Hep C Current Medications: Active Medications Generic Name Dose Route Start Last Admin Trade Name Freq PRN Reason Stop Dose Admin Acetaminophen 650 mg 07/21/17 12:48 Tylenol - PO Q4H PRN FEVER Al Hydroxide/Mg Hydroxide 30 ml 07/21/17 12:48 Mylanta Oral Suspension - PO Q6H PRN DYSPEPSIA Buprenorphine/Naloxone 2 each 07/21/17 14:07 07/22/17 09:53 Suboxone 2mg/0.5mg Sl Film - SL 07/28/17 09:59 2 each DAILY ARCHANA Administration Eucalyptus/Menthol/Phenol/Sorbitol 1 each 07/21/17 12:48 Cepastat Lozenge - MM Q4H PRN SORE THROAT Guaifenesin 10 ml 07/21/17 12:48 Robitussin Dm - PO Q6H PRN COUGH Ibuprofen 400 mg 07/21/17 12:48 Motrin - PO Q6H PRN Pain Level 4-6 Loperamide HCl 4 mg 07/21/17 12:48 Imodium - PO Q6H PRN DIARRHEA Magnesium Citrate 300 ml 07/21/17 12:48 Citroma - PO Q48H PRN CONSTIPATION Magnesium Hydroxide 30 ml 07/21/17 12:48 Milk Of Magnesia - PO DAILY PRN CONSTIPATION Nicotine 14 mg 07/22/17 10:00 07/22/17 09:53 Nicoderm Patch - TD 14 mg DAILY ARCHANA Administration Multivit/Folic Acid/Iron 1 tab 07/22/17 10:00 07/22/17 09:53 Vitamins (Sjr) - PO 1 tab DAILY ARCHANA Administration Pseudoephedrine/Triprolidine 1 combo 07/21/17 12:48 Actifed - PO TID PRN NASAL CONGESTION Quetiapine Fumarate 100 mg 07/21/17 22:00 07/21/17 21:42 Seroquel - PO 100 mg HS ARCHANA Administration Thiamine HCl 100 mg 07/21/17 22:00 07/21/17 21:42 Vitamin B1 - PO 100 mg HS ARCHANA Administration Current Side Effect: No Lab tests ordered: Yes Lab tests reviewed: Yes Provider note:: Patient reports experiencing difficulty to sleep. Told appeals writer that he has been sleeping poorly despite taking Seroquel 100 mg po HS. Requests to be prescribed Ambien which he heard from peers worked well for them. Hypnotic properties as well as adverse-effects of Belsomra discussed with patient and he agreed to try it Total face to face time:: 15 Mental Status Exam - Mental Status Exam Alert and Oriented to: Time, Place, Person Cognitive Function: Fair Patient Appearance: Well Groomed Mood: Hopeful, Euthymic Affect: Appropriate Patient Behavior: Cooperative Speech Pattern: Clear Voice Loudness: Normal Thought Process: Intact, Goal Oriented Thought Disorder: Not Present Hallucinations: Denies Suicidal Ideation: Denies Homicidal Ideation: Denies Insight/Judgement: Fair Sleep: Poorly Appetite: Good Muscle strength/Tone: Normal Gait/Station: Normal Psychiatric Treatment Plan - Problem List (1) Opioid dependence Current Visit: Yes (2) Cocaine dependence Current Visit: Yes Qualifiers: Substance use status: uncomplicated Qualified Code(s): F14.20 - Cocaine dependence, uncomplicated (3) Sedative, hypnotic or anxiolytic abuse Current Visit: Yes (4) Nicotine dependence Current Visit: Yes Qualifiers: Nicotine product type: cigarettes Substance use status: in withdrawal Qualified Code(s): F17.213 - Nicotine dependence, cigarettes, with withdrawal (5) Mood disorder Current Visit: No Comment: Self reports. (6) Substance induced mood disorder Current Visit: Yes (7) Hepatitis C Current Visit: Yes Initial treatment plan: 1) Start Belsomra 10 mg po HS prn for insomnia. 2) Monitor progress
[2017-07-22] MEDS: QUEtiapine FUMARATE 100 MG TABLET (FP) PO SCH (21:18)
[2017-07-22] MEDS: THIAMINE HCL 100 MG TABLET (FP) PO SCH (21:19)
[2017-07-22] MEDS: SUVOREXANT 10 MG TABLET PO PRN (21:20)
[2017-07-23] MEDS: PRENATAL VITAMINS W/ FOLIC ACID TABLET (FP) PO SCH (09:48)
[2017-07-23] MEDS: BUPRENORPHINE/NALOXONE 2 MG/0.5 MG FILM PACKET SL SCH (09:48)
[2017-07-23] MEDS: NICOTINE 14 MG/24 HOURS TOPICAL PATCH TD SCH (09:48)
[2017-07-23] MEDS: THIAMINE HCL 100 MG TABLET (FP) PO SCH (21:30)
[2017-07-23] MEDS: QUEtiapine FUMARATE 100 MG TABLET (FP) PO SCH (21:30)
[2017-07-23] MEDS: SUVOREXANT 10 MG TABLET PO PRN (21:30)
[2017-07-24] MEDS: NICOTINE 14 MG/24 HOURS TOPICAL PATCH TD SCH (09:39)
[2017-07-24] MEDS: PRENATAL VITAMINS W/ FOLIC ACID TABLET (FP) PO SCH (09:39)
[2017-07-24] MEDS: BUPRENORPHINE/NALOXONE 2 MG/0.5 MG FILM PACKET SL SCH (09:40)
[2017-07-24] MEDS: ACETAMINOPHEN 325 MG TABLET (FP) PO PRN (10:15)
[2017-07-24] MEDS ORDERED: FLU VACCINE QUAD 60 MCG/0.5 ML (MDV 17-18) IM ONE (12:00)
--- NOTE | 2017-07-24 12:24 | PN ---
JAZMINES Progress Note Note: co withdrawal increase dose to 8mg daily he sys he has fu plan - [employer]
[2017-07-24] MEDS ORDERED: BUPRENORPHINE/NALOXONE 2 MG/0.5 MG FILM PACKET SL ONE (12:59)
[2017-07-24] MEDS: IBUPROFEN 400 MG TABLET (FP) PO PRN (15:49)
[2017-07-24] MEDS: THIAMINE HCL 100 MG TABLET (FP) PO SCH (21:54)
[2017-07-24] MEDS: QUEtiapine FUMARATE 100 MG TABLET (FP) PO SCH (21:54)
[2017-07-24] MEDS: SUVOREXANT 10 MG TABLET PO PRN (21:55)
[2017-07-25] MEDS: BUPRENORPHINE/NALOXONE 8 MG/2 MG FILM PACKET SL SCH (09:39)
[2017-07-25] MEDS: PRENATAL VITAMINS W/ FOLIC ACID TABLET (FP) PO SCH (09:39)
[2017-07-25] MEDS: NICOTINE 14 MG/24 HOURS TOPICAL PATCH TD SCH (09:39)
[2017-07-25] MEDS: SUVOREXANT 10 MG TABLET PO PRN (21:47)
[2017-07-25] MEDS: THIAMINE HCL 100 MG TABLET (FP) PO SCH (21:47)
[2017-07-25] MEDS: IBUPROFEN 400 MG TABLET (FP) PO PRN (21:48)
[2017-07-25] MEDS: QUEtiapine FUMARATE 100 MG TABLET (FP) PO SCH (21:48)
[2017-07-26] MEDS: PRENATAL VITAMINS W/ FOLIC ACID TABLET (FP) PO SCH (09:33)
[2017-07-26] MEDS: NICOTINE 14 MG/24 HOURS TOPICAL PATCH TD SCH (09:33)
[2017-07-26] MEDS: BUPRENORPHINE/NALOXONE 8 MG/2 MG FILM PACKET SL SCH (09:33)
[2017-07-26] MEDS ORDERED: FLU VACCINE QUAD 60 MCG/0.5 ML (MDV 17-18) IM ONE (12:00)
[2017-07-26] MEDS: THIAMINE HCL 100 MG TABLET (FP) PO SCH (22:06)
[2017-07-26] MEDS: QUEtiapine FUMARATE 100 MG TABLET (FP) PO SCH (22:06)
[2017-07-26] MEDS: SUVOREXANT 10 MG TABLET PO PRN (22:07)
[2017-07-27] MEDS: PRENATAL VITAMINS W/ FOLIC ACID TABLET (FP) PO SCH (09:24)
[2017-07-27] MEDS: BUPRENORPHINE/NALOXONE 8 MG/2 MG FILM PACKET SL SCH (09:24)
[2017-07-27] MEDS: NICOTINE 14 MG/24 HOURS TOPICAL PATCH TD SCH (09:24)
[2017-07-27] MEDS: SUVOREXANT 10 MG TABLET PO PRN (21:52)
[2017-07-27] MEDS: THIAMINE HCL 100 MG TABLET (FP) PO SCH (21:52)
[2017-07-27] MEDS: QUEtiapine FUMARATE 100 MG TABLET (FP) PO SCH (21:52)
[2017-07-28] MEDS: PRENATAL VITAMINS W/ FOLIC ACID TABLET (FP) PO SCH (09:40)
[2017-07-28] MEDS: NICOTINE 14 MG/24 HOURS TOPICAL PATCH TD SCH (09:40)
[2017-07-28] MEDS: BUPRENORPHINE/NALOXONE 8 MG/2 MG FILM PACKET SL SCH (09:40)
[2017-07-28] MEDS: SUVOREXANT 10 MG TABLET PO PRN (22:10)
[2017-07-28] MEDS: THIAMINE HCL 100 MG TABLET (FP) PO SCH (22:10)
[2017-07-28] MEDS: QUEtiapine FUMARATE 100 MG TABLET (FP) PO SCH (22:11)
[2017-07-28] MEDS: TOLNAFTATE 1% CREAM 15 GM TUBE TP SCH (22:12)
[2017-07-29] MEDS: PRENATAL VITAMINS W/ FOLIC ACID TABLET (FP) PO SCH (09:35)
[2017-07-29] MEDS: BUPRENORPHINE/NALOXONE 8 MG/2 MG FILM PACKET SL SCH (09:35)
[2017-07-29] MEDS: NICOTINE 14 MG/24 HOURS TOPICAL PATCH TD SCH (09:35)
[2017-07-29] MEDS: TOLNAFTATE 1% CREAM 15 GM TUBE TP SCH ×2 (09:37→21:20)
[2017-07-29] MEDS ORDERED: BUPRENORPHINE/NALOXONE 2 MG/0.5 MG FILM PACKET SL ONE (15:23)
--- NOTE | 2017-07-29 15:26 | PN ---
[facility] Progress Note (SOAP) Subjective: reveiwed labwork with patient, concerned about lfts on suboxone, requesting increase in suboxone dose cravings, desire to use Objective: 07/29/17 15:25 Vital Signs - 24 hr 07/29/17 07/29/17 07/29/17 00:30 03:30 06:42 Temperature 98.5 F Pulse Rate 86 Respiratory 20 20 18 Rate Blood Pressure 123/69 labs reveiwed Assessment: 07/29/17 15:25 increase suboxone to 12mg daily
[2017-07-29] MEDS: THIAMINE HCL 100 MG TABLET (FP) PO SCH (21:19)
[2017-07-29] MEDS: QUEtiapine FUMARATE 100 MG TABLET (FP) PO SCH (21:19)
[2017-07-29] MEDS: SUVOREXANT 10 MG TABLET PO PRN (21:19)
[2017-07-29] MEDS: ACETAMINOPHEN 325 MG TABLET (FP) PO PRN (22:26)
[2017-07-30] MEDS: NICOTINE 14 MG/24 HOURS TOPICAL PATCH TD SCH (09:39)
[2017-07-30] MEDS: PRENATAL VITAMINS W/ FOLIC ACID TABLET (FP) PO SCH (09:39)
[2017-07-30] MEDS: BUPRENORPHINE HCL/NALOXONE 12 MG-3 MG SL FILM PACKET SL SCH (09:39)
[2017-07-30] MEDS: ACETAMINOPHEN 325 MG TABLET (FP) PO PRN (09:41)
[2017-07-30] MEDS: TOLNAFTATE 1% CREAM 15 GM TUBE TP SCH ×2 (09:50→22:12)
[2017-07-30] MEDS: THIAMINE HCL 100 MG TABLET (FP) PO SCH (21:35)
[2017-07-30] MEDS: QUEtiapine FUMARATE 100 MG TABLET (FP) PO SCH (21:35)
[2017-07-30] MEDS: SUVOREXANT 10 MG TABLET PO PRN (21:37)
[2017-07-31] MEDS: TOLNAFTATE 1% CREAM 15 GM TUBE TP SCH ×2 (09:44→21:35)
[2017-07-31] MEDS: NICOTINE 14 MG/24 HOURS TOPICAL PATCH TD SCH (09:44)
[2017-07-31] MEDS: PRENATAL VITAMINS W/ FOLIC ACID TABLET (FP) PO SCH (09:44)
[2017-07-31] MEDS: BUPRENORPHINE HCL/NALOXONE 12 MG-3 MG SL FILM PACKET SL SCH (09:44)
[2017-07-31] MEDS: SUVOREXANT 10 MG TABLET PO PRN (21:34)
[2017-07-31] MEDS: THIAMINE HCL 100 MG TABLET (FP) PO SCH (21:35)
[2017-07-31] MEDS: QUEtiapine FUMARATE 100 MG TABLET (FP) PO SCH (21:35)
[2017-07-31] MEDS ORDERED: SUVOREXANT 10 MG TABLET PO PRN (22:00)
[2017-08-01] MEDS: BUPRENORPHINE HCL/NALOXONE 12 MG-3 MG SL FILM PACKET SL SCH (09:40)
[2017-08-01] MEDS: NICOTINE 14 MG/24 HOURS TOPICAL PATCH TD SCH (09:40)
[2017-08-01] MEDS: PRENATAL VITAMINS W/ FOLIC ACID TABLET (FP) PO SCH (09:40)
[2017-08-01] MEDS: TOLNAFTATE 1% CREAM 15 GM TUBE TP SCH ×2 (09:40→21:42)
[2017-08-01] MEDS: QUEtiapine FUMARATE 100 MG TABLET (FP) PO SCH (21:42)
[2017-08-01] MEDS: THIAMINE HCL 100 MG TABLET (FP) PO SCH (21:42)
[2017-08-01] MEDS: SUVOREXANT 10 MG TABLET PO PRN (23:07)
[2017-08-02] MEDS: NICOTINE 14 MG/24 HOURS TOPICAL PATCH TD SCH (09:42)
[2017-08-02] MEDS: PRENATAL VITAMINS W/ FOLIC ACID TABLET (FP) PO SCH (09:42)
[2017-08-02] MEDS: BUPRENORPHINE HCL/NALOXONE 12 MG-3 MG SL FILM PACKET SL SCH (09:42)
[2017-08-02] MEDS: TOLNAFTATE 1% CREAM 15 GM TUBE TP SCH ×2 (09:43→21:13)
[2017-08-02] MEDS: QUEtiapine FUMARATE 100 MG TABLET (FP) PO SCH (21:13)
[2017-08-02] MEDS: SUVOREXANT 10 MG TABLET PO PRN (21:13)
[2017-08-02] MEDS: THIAMINE HCL 100 MG TABLET (FP) PO SCH (21:13)
[2017-08-03] MEDS: BUPRENORPHINE HCL/NALOXONE 12 MG-3 MG SL FILM PACKET SL SCH (09:34)
[2017-08-03] MEDS: PRENATAL VITAMINS W/ FOLIC ACID TABLET (FP) PO SCH (09:34)
[2017-08-03] MEDS: NICOTINE 14 MG/24 HOURS TOPICAL PATCH TD SCH (09:34)
[2017-08-03] MEDS: TOLNAFTATE 1% CREAM 15 GM TUBE TP SCH ×2 (09:55→21:14)
[2017-08-03] MEDS: QUEtiapine FUMARATE 100 MG TABLET (FP) PO SCH (21:14)
[2017-08-03] MEDS: SUVOREXANT 10 MG TABLET PO PRN (21:14)
[2017-08-03] MEDS: THIAMINE HCL 100 MG TABLET (FP) PO SCH (21:14)
[2017-08-04] MEDS: BUPRENORPHINE HCL/NALOXONE 12 MG-3 MG SL FILM PACKET SL SCH (09:36)
[2017-08-04] MEDS: PRENATAL VITAMINS W/ FOLIC ACID TABLET (FP) PO SCH (09:36)
[2017-08-04] MEDS: NICOTINE 14 MG/24 HOURS TOPICAL PATCH TD SCH (09:36)
[2017-08-04] MEDS: TOLNAFTATE 1% CREAM 15 GM TUBE TP SCH ×2 (09:37→21:34)
[2017-08-04] MEDS: QUEtiapine FUMARATE 100 MG TABLET (FP) PO SCH (21:33)
[2017-08-04] MEDS: SUVOREXANT 10 MG TABLET PO PRN (21:33)
[2017-08-04] MEDS: THIAMINE HCL 100 MG TABLET (FP) PO SCH (21:33)
[2017-08-04] MEDS: ACETAMINOPHEN 325 MG TABLET (FP) PO PRN (22:15)
[2017-08-05] MEDS: NICOTINE 14 MG/24 HOURS TOPICAL PATCH TD SCH (09:43)
[2017-08-05] MEDS: PRENATAL VITAMINS W/ FOLIC ACID TABLET (FP) PO SCH (09:43)
[2017-08-05] MEDS: TOLNAFTATE 1% CREAM 15 GM TUBE TP SCH ×2 (10:06→21:53)
[2017-08-05] MEDS ORDERED: BUPRENORPHINE/NALOXONE 2 MG/0.5 MG FILM PACKET SL ONE (15:03)
--- NOTE | 2017-08-05 15:03 | PN ---
[facility] Progress Note (SOAP) Subjective: c/o sweats, insomnia, drug dreams cravings and desire to use, would like to increase dose of suboxone Objective: 08/05/17 15:01 Vital Signs - 24 hr 08/05/17 08/05/17 08/05/17 00:30 03:23 06:30 Temperature 97.6 F Pulse Rate 79 Respiratory 18 18 18 Rate Blood Pressure 123/67 labs reviewed Assessment: 08/05/17 15:02 oud - increase mat with suboxone to 16mg daily, 4mg x1 dose now. hpe c+ needs treatment when he eturns to pcp, counseled re: need for treatment and efects of hep c on liver.
[2017-08-05] MEDS: THIAMINE HCL 100 MG TABLET (FP) PO SCH (21:53)
[2017-08-05] MEDS: QUEtiapine FUMARATE 100 MG TABLET (FP) PO SCH (21:53)
[2017-08-05] MEDS: ACETAMINOPHEN 325 MG TABLET (FP) PO PRN (21:55)
[2017-08-05] MEDS: SUVOREXANT 10 MG TABLET PO PRN (21:55)
[2017-08-06] MEDS: PRENATAL VITAMINS W/ FOLIC ACID TABLET (FP) PO SCH (09:32)
[2017-08-06] MEDS: BUPRENORPHINE/NALOXONE 8 MG/2 MG FILM PACKET SL SCH (09:32)
[2017-08-06] MEDS: NICOTINE 14 MG/24 HOURS TOPICAL PATCH TD SCH (09:32)
[2017-08-06] MEDS: TOLNAFTATE 1% CREAM 15 GM TUBE TP SCH ×2 (09:33→21:18)
[2017-08-06] MEDS ORDERED: BUPRENORPHINE HCL/NALOXONE 12 MG-3 MG SL FILM PACKET SL SCH (10:00)
[2017-08-06] MEDS: THIAMINE HCL 100 MG TABLET (FP) PO SCH (21:17)
[2017-08-06] MEDS: SUVOREXANT 10 MG TABLET PO PRN (21:17)
[2017-08-06] MEDS: QUEtiapine FUMARATE 100 MG TABLET (FP) PO SCH (21:17)
[2017-08-07] MEDS: BUPRENORPHINE/NALOXONE 8 MG/2 MG FILM PACKET SL SCH (09:41)
[2017-08-07] MEDS: NICOTINE 14 MG/24 HOURS TOPICAL PATCH TD SCH (09:41)
[2017-08-07] MEDS: PRENATAL VITAMINS W/ FOLIC ACID TABLET (FP) PO SCH (09:41)
[2017-08-07] MEDS: TOLNAFTATE 1% CREAM 15 GM TUBE TP SCH ×2 (09:43→21:48)
[2017-08-07] MEDS: THIAMINE HCL 100 MG TABLET (FP) PO SCH (21:46)
[2017-08-07] MEDS: QUEtiapine FUMARATE 100 MG TABLET (FP) PO SCH (21:46)
[2017-08-07] MEDS: SUVOREXANT 10 MG TABLET PO PRN (21:47)
[2017-08-08] MEDS: PRENATAL VITAMINS W/ FOLIC ACID TABLET (FP) PO SCH (09:35)
[2017-08-08] MEDS: NICOTINE 14 MG/24 HOURS TOPICAL PATCH TD SCH (09:35)
[2017-08-08] MEDS: BUPRENORPHINE/NALOXONE 8 MG/2 MG FILM PACKET SL SCH (09:35)
[2017-08-08] MEDS: TOLNAFTATE 1% CREAM 15 GM TUBE TP SCH ×2 (10:52→21:31)
[2017-08-08] MEDS: THIAMINE HCL 100 MG TABLET (FP) PO SCH (21:30)
[2017-08-08] MEDS: SUVOREXANT 10 MG TABLET PO PRN (21:31)
[2017-08-08] MEDS: QUEtiapine FUMARATE 100 MG TABLET (FP) PO SCH (21:31)
[2017-08-09] MEDS ORDERED: PT OWN MED DRAWER 7, Y5N ONE (08:40)
[2017-08-09] MEDS: PRENATAL VITAMINS W/ FOLIC ACID TABLET (FP) PO SCH (09:34)
[2017-08-09] MEDS: BUPRENORPHINE/NALOXONE 8 MG/2 MG FILM PACKET SL SCH (09:34)
[2017-08-09] MEDS: TOLNAFTATE 1% CREAM 15 GM TUBE TP SCH ×2 (09:35→22:10)
[2017-08-09] MEDS: NICOTINE 14 MG/24 HOURS TOPICAL PATCH TD SCH (09:35)
[2017-08-09] MEDS: QUEtiapine FUMARATE 100 MG TABLET (FP) PO SCH (22:08)
[2017-08-09] MEDS: THIAMINE HCL 100 MG TABLET (FP) PO SCH (22:08)
[2017-08-09] MEDS: SUVOREXANT 10 MG TABLET PO PRN (22:09)
[2017-08-10] MEDS ORDERED: PT OWN MED DRAWER 7, Y5N ONE ×2 (08:27→19:07)
[2017-08-10] MEDS: BUPRENORPHINE/NALOXONE 8 MG/2 MG FILM PACKET SL SCH (09:24)
[2017-08-10] MEDS: PRENATAL VITAMINS W/ FOLIC ACID TABLET (FP) PO SCH (09:24)
[2017-08-10] MEDS: NICOTINE 14 MG/24 HOURS TOPICAL PATCH TD SCH (09:24)
[2017-08-10] MEDS: TOLNAFTATE 1% CREAM 15 GM TUBE TP SCH ×2 (09:25→22:37)
[2017-08-10] MEDS: THIAMINE HCL 100 MG TABLET (FP) PO SCH (22:37)
[2017-08-10] MEDS: QUEtiapine FUMARATE 100 MG TABLET (FP) PO SCH (22:37)
[2017-08-10] MEDS: SUVOREXANT 10 MG TABLET PO PRN (22:38)
[2017-08-11] MEDS: PRENATAL VITAMINS W/ FOLIC ACID TABLET (FP) PO SCH (09:40)
[2017-08-11] MEDS: BUPRENORPHINE/NALOXONE 8 MG/2 MG FILM PACKET SL SCH (09:40)
[2017-08-11] MEDS: NICOTINE 14 MG/24 HOURS TOPICAL PATCH TD SCH (09:41)
[2017-08-11] MEDS: TOLNAFTATE 1% CREAM 15 GM TUBE TP SCH ×2 (09:42→21:43)
[2017-08-11] MEDS: QUEtiapine FUMARATE 100 MG TABLET (FP) PO SCH (21:43)
[2017-08-11] MEDS: THIAMINE HCL 100 MG TABLET (FP) PO SCH (21:43)
[2017-08-11] MEDS: SUVOREXANT 10 MG TABLET PO PRN (21:43)
[2017-08-12] MEDS: PRENATAL VITAMINS W/ FOLIC ACID TABLET (FP) PO SCH (09:41)
[2017-08-12] MEDS: NICOTINE 14 MG/24 HOURS TOPICAL PATCH TD SCH (09:41)
[2017-08-12] MEDS: TOLNAFTATE 1% CREAM 15 GM TUBE TP SCH ×2 (09:42→21:15)
[2017-08-12] MEDS ORDERED: BUPRENORPHINE/NALOXONE 8 MG/2 MG FILM PACKET SL SCH ×3 (12:21→14:20)
--- NOTE | 2017-08-12 13:29 | PN ---
[facility] Progress Note (SOAP) Subjective: c/o cravings desire to use, not tking medication properly Objective: 08/12/17 13:28 Vital Signs - 24 hr 08/12/17 06:36 Temperature 97.4 F L Pulse Rate 66 Respiratory 18 Rate Blood Pressure 111/73 labs reviewed Assessment: 08/12/17 13:28 protractedopioid withdrawal - on mat with suboxone only had 8mg today , will restart 16mg daily, advised on correct techniquie to take medic ation, will follow up outside when he leaves rehab. risks and benefits discusssed.
[2017-08-12] MEDS: THIAMINE HCL 100 MG TABLET (FP) PO SCH (21:14)
[2017-08-12] MEDS: SUVOREXANT 10 MG TABLET PO PRN (21:14)
[2017-08-12] MEDS: QUEtiapine FUMARATE 100 MG TABLET (FP) PO SCH (21:15)
[2017-08-13] MEDS: NICOTINE 14 MG/24 HOURS TOPICAL PATCH TD SCH (09:27)
[2017-08-13] MEDS: BUPRENORPHINE/NALOXONE 8 MG/2 MG FILM PACKET SL SCH (09:27)
[2017-08-13] MEDS: PRENATAL VITAMINS W/ FOLIC ACID TABLET (FP) PO SCH (09:27)
[2017-08-13] MEDS: TOLNAFTATE 1% CREAM 15 GM TUBE TP SCH ×2 (09:29→21:08)
--- NOTE | 2017-08-13 12:55 | PN ---
[facility] Progress Note Note: Psychiatric nurse practitioner note: Pt. made aware that Belsomra 10mg PRN was reordered for insomnia.
[2017-08-13] MEDS: SUVOREXANT 10 MG TABLET PO PRN (21:07)
[2017-08-13] MEDS: THIAMINE HCL 100 MG TABLET (FP) PO SCH (21:07)
[2017-08-13] MEDS: QUEtiapine FUMARATE 100 MG TABLET (FP) PO SCH (21:08)
[2017-08-14] MEDS: BUPRENORPHINE/NALOXONE 8 MG/2 MG FILM PACKET SL SCH (09:30)
[2017-08-14] MEDS: PRENATAL VITAMINS W/ FOLIC ACID TABLET (FP) PO SCH (09:30)
[2017-08-14] MEDS: NICOTINE 14 MG/24 HOURS TOPICAL PATCH TD SCH (09:30)
[2017-08-14] MEDS: TOLNAFTATE 1% CREAM 15 GM TUBE TP SCH ×2 (09:31→21:57)
[2017-08-14] MEDS: THIAMINE HCL 100 MG TABLET (FP) PO SCH (21:56)
[2017-08-14] MEDS: QUEtiapine FUMARATE 100 MG TABLET (FP) PO SCH (21:56)
[2017-08-14] MEDS: SUVOREXANT 10 MG TABLET PO PRN (21:58)
[2017-08-15] MEDS ORDERED: PT OWN MED DRAWER 7, Y5N ONE (08:51)
[2017-08-15] MEDS: PRENATAL VITAMINS W/ FOLIC ACID TABLET (FP) PO SCH (09:45)
[2017-08-15] MEDS: BUPRENORPHINE/NALOXONE 8 MG/2 MG FILM PACKET SL SCH (09:45)
[2017-08-15] MEDS: NICOTINE 14 MG/24 HOURS TOPICAL PATCH TD SCH (09:46)
[2017-08-15] MEDS: TOLNAFTATE 1% CREAM 15 GM TUBE TP SCH ×2 (09:46→21:35)
[2017-08-15] MEDS: THIAMINE HCL 100 MG TABLET (FP) PO SCH (21:35)
[2017-08-15] MEDS: QUEtiapine FUMARATE 100 MG TABLET (FP) PO SCH (21:35)
[2017-08-15] MEDS: SUVOREXANT 10 MG TABLET PO PRN (21:35)
[2017-08-16] MEDS: BUPRENORPHINE/NALOXONE 8 MG/2 MG FILM PACKET SL SCH (09:28)
[2017-08-16] MEDS: PRENATAL VITAMINS W/ FOLIC ACID TABLET (FP) PO SCH (09:28)
[2017-08-16] MEDS: TOLNAFTATE 1% CREAM 15 GM TUBE TP SCH ×2 (09:28→21:10)
[2017-08-16] MEDS: NICOTINE 14 MG/24 HOURS TOPICAL PATCH TD SCH (09:28)
[2017-08-16] MEDS ORDERED: PT OWN MED DRAWER 7, Y5N ONE (12:09)
[2017-08-16] MEDS: SUVOREXANT 10 MG TABLET PO PRN (21:09)
[2017-08-16] MEDS: THIAMINE HCL 100 MG TABLET (FP) PO SCH (21:09)
[2017-08-16] MEDS: QUEtiapine FUMARATE 100 MG TABLET (FP) PO SCH (21:09)
[2017-08-17] MEDS: TOLNAFTATE 1% CREAM 15 GM TUBE TP SCH ×2 (09:33→22:48)
[2017-08-17] MEDS: BUPRENORPHINE/NALOXONE 8 MG/2 MG FILM PACKET SL SCH (09:33)
[2017-08-17] MEDS: NICOTINE 14 MG/24 HOURS TOPICAL PATCH TD SCH (09:33)
[2017-08-17] MEDS: PRENATAL VITAMINS W/ FOLIC ACID TABLET (FP) PO SCH (09:33)
[2017-08-17] MEDS ORDERED: PT OWN MED DRAWER 7, Y5N ONE (19:02)
[2017-08-17] MEDS: QUEtiapine FUMARATE 100 MG TABLET (FP) PO SCH (22:14)
[2017-08-17] MEDS: SUVOREXANT 10 MG TABLET PO PRN (22:14)
[2017-08-17] MEDS: THIAMINE HCL 100 MG TABLET (FP) PO SCH (22:14)
[2017-08-18] MEDS: BUPRENORPHINE/NALOXONE 8 MG/2 MG FILM PACKET SL SCH (09:48)
[2017-08-18] MEDS: NICOTINE 14 MG/24 HOURS TOPICAL PATCH TD SCH (09:48)
[2017-08-18] MEDS: PRENATAL VITAMINS W/ FOLIC ACID TABLET (FP) PO SCH (09:48)
[2017-08-18] MEDS: TOLNAFTATE 1% CREAM 15 GM TUBE TP SCH ×2 (09:48→21:55)
[2017-08-18] MEDS: SUVOREXANT 10 MG TABLET PO PRN (21:10)
[2017-08-18] MEDS: QUEtiapine FUMARATE 100 MG TABLET (FP) PO SCH (21:10)
[2017-08-18] MEDS: THIAMINE HCL 100 MG TABLET (FP) PO SCH (21:10)
[2017-08-19 06:42] VITALS: BP 126/76; PULSE 65; TEMP 98.2
--- NOTE | 2017-08-19 08:08 | PN ---
Psychiatric Progress Note Vital Signs: Vital Signs Period Temp Pulse Resp BP Sys/Laws Pulse Ox Last 24 Hr 98.2 F 65 16-18 126/76 Date of Session: 08/19/17 Chief Complaint:: [facility] HPI: Pt. admitted [facility] for heroin and cocaine dependence. ROS: Unremarkable. Current Medications: Active Medications Generic Name Dose Route Start Last Admin Trade Name Freq PRN Reason Stop Dose Admin Acetaminophen 650 mg 07/21/17 12:48 08/05/17 21:55 Tylenol - PO 650 mg Q4H PRN Administration FEVER Al Hydroxide/Mg Hydroxide 30 ml 07/21/17 12:48 Mylanta Oral Suspension - PO Q6H PRN DYSPEPSIA Buprenorphine/Naloxone 2 each 08/19/17 10:00 Suboxone 8mg/2mg Sl Film - SL 08/21/17 09:59 DAILY ARCHANA Eucalyptus/Menthol/Phenol/Sorbitol 1 each 07/21/17 12:48 Cepastat Lozenge - MM Q4H PRN SORE THROAT Guaifenesin 10 ml 07/21/17 12:48 Robitussin Dm - PO Q6H PRN COUGH Ibuprofen 400 mg 07/21/17 12:48 07/25/17 21:48 Motrin - PO 400 mg Q6H PRN Administration Pain Level 4-6 Loperamide HCl 4 mg 07/21/17 12:48 Imodium - PO Q6H PRN DIARRHEA Magnesium Citrate 300 ml 07/21/17 12:48 Citroma - PO Q48H PRN CONSTIPATION Magnesium Hydroxide 30 ml 07/21/17 12:48 Milk Of Magnesia - PO DAILY PRN CONSTIPATION Nicotine 14 mg 07/22/17 10:00 08/18/17 09:48 Nicoderm Patch - TD 14 mg DAILY ARCHANA Administration Multivit/Folic Acid/Iron 1 tab 07/22/17 10:00 08/18/17 09:48 Vitamins (Sjr) - PO 1 tab DAILY ARCHANA Administration Pseudoephedrine/Triprolidine 1 combo 07/21/17 12:48 Actifed - PO TID PRN NASAL CONGESTION Quetiapine Fumarate 100 mg 07/21/17 22:00 08/18/17 21:10 Seroquel - PO 100 mg HS ARCHANA Administration Thiamine HCl 100 mg 07/21/17 22:00 08/18/17 21:10 Vitamin B1 - PO 100 mg HS ARCHANA Administration Tolnaftate 1 applic 07/28/17 22:00 08/18/17 21:55 Tinactin 1% Cream - TP Not Given BID ARCHANA Medication(s) Change(s): No. Current Side Effect: No Lab tests ordered: No Lab tests reviewed: Yes Provider note:: Patient completed the rehabilition program on 08/19/17. He has met his treatment goals and will continue to address his issues in outpatient treatment at [facility]. Patient is able to understand the consequences of his addiction and the need to make positive changes to his lifestyle in order to maintain abstinence. Pt. responded well to seroquel 100mg qhs. A script for 30 days supply was sent electronically to [facility]. Pt. is stable for discharge on 08/19/17. Total face to face time:: 30 Mental Status Exam - Mental Status Exam Alert and Oriented to: Time, Place, Person Cognitive Function: Good Patient Appearance: Well Groomed Mood: Hopeful Affect: Mood Congruent Patient Behavior: Appropriate, Cooperative Speech Pattern: Clear, Appropriate Voice Loudness: Normal Thought Process: Goal Oriented Thought Disorder: Not Present Hallucinations: Denies Suicidal Ideation: Denies Homicidal Ideation: Denies Insight/Judgement: Poor Sleep: Poorly Appetite: Fair Muscle strength/Tone: Normal Gait/Station: Normal Psychiatric Treatment Plan - Problem List (1) Nicotine dependence Current Visit: Yes Qualifiers: Nicotine product type: cigarettes Substance use status: in withdrawal Qualified Code(s): F17.213 - Nicotine dependence, cigarettes, with withdrawal (2) Opioid dependence Current Visit: Yes (3) Sedative, hypnotic or anxiolytic abuse Current Visit: Yes (4) Substance induced mood disorder Current Visit: Yes (5) Mood disorder Current Visit: No Comment: Self reports. (6) Cocaine dependence Current Visit: Yes Qualifiers: Substance use status: uncomplicated Qualified Code(s): F14.20 - Cocaine dependence, uncomplicated
[2017-08-19] MEDS: PRENATAL VITAMINS W/ FOLIC ACID TABLET (FP) PO SCH (09:00)
[2017-08-19] MEDS: NICOTINE 14 MG/24 HOURS TOPICAL PATCH TD SCH (09:15)
[2017-08-19] MEDS: TOLNAFTATE 1% CREAM 15 GM TUBE TP SCH (09:15)
[2017-08-19] MEDS ORDERED: BUPRENORPHINE/NALOXONE 8 MG/2 MG FILM PACKET SL SCH (10:00)
== END 2017-08-19 09:00 | disposition home or self-care (01) | DRG 772 ==
LOC: YASAS 11:11 → Y3W 11:14
PROVIDERS: ADMIT Psychiatry & Neurology Psychiatry; ATTEND Psychiatry & Neurology Psychiatry
PROC: HZ42ZZZ Group Counseling for Substance Abuse Treatment, Cognitive-Behavioral (ICD-10-PCS; principal; 2017-07-21)
DX: F11.20 Opioid dependence, uncomplicated (principal); F13.20 Sedative, hypnotic or anxiolytic dependence, uncomplicated; F14.20 Cocaine dependence, uncomplicated; F17.213 Nicotine dependence, cigarettes, with withdrawal; F19.24 Other psychoactive substance dependence with psychoactive substance-induced mood disorder; F39 Unspecified mood [affective] disorder; F31.9 Bipolar disorder, unspecified; B18.2 Chronic viral hepatitis C
CPT/HCPCS: 90688

== ENCOUNTER 2024-04-22 11:33 | Inpatient (IN) | payer BC ==
[2024-04-22 12:11] VITALS: BMI 21.9
[2024-04-22] MEDS ORDERED: MAG HYDROX/AL HYDROX/SIMETH 30 ML UNIT-DOSE CUP PO PRN (13:43)
[2024-04-22] MEDS ORDERED: MAGNESIUM HYDROX 2400MG/30ML ORAL SUSPENSION 30 ML CUP PO PRN (13:43)
[2024-04-22] MEDS ORDERED: NICOTINE POLACRILEX 2 MG GUM BUC PRN (13:43)
[2024-04-22] MEDS ORDERED: IBUPROFEN 400 MG TABLET (FP) PO PRN (13:43)
[2024-04-22] MEDS ORDERED: POLYETHYLENE GLYCOL (HEALTHYLAX) 3350 17 GM PACKET PO PRN (13:43)
[2024-04-22] MEDS ORDERED: BENZOCAINE/MENTHOL (CHLORASEPTIC ) LOZENGE MM PRN (13:43)
[2024-04-22] MEDS ORDERED: BENZONATATE 200 MG CAPSULE PO PRN (13:43)
[2024-04-22] MEDS ORDERED: NALOXONE (NARCAN) HCL 4 MG/0.1 ML SPRAY NS PRN (13:43)
[2024-04-22] MEDS ORDERED: LOPERAMIDE HCL 2 MG CAPSULE PO PRN (13:43)
[2024-04-22] MEDS ORDERED: guaiFENesin 600 MG TABLET.ER (FP) PO PRN (13:43)
[2024-04-22] MEDS ORDERED: methaDONE HCL 10 MG TABLET (FOR DETOX USE ONLY) ONE (14:05)
[2024-04-22] MEDS: methaDONE HCL 10 MG TABLET (FOR DETOX USE ONLY) PO ONE (14:18)
[2024-04-22] MEDS ORDERED: diazePAM 5 MG TABLET ONE (14:23)
[2024-04-22] MEDS: diazePAM 5 MG TABLET PO ONE (14:24)
[2024-04-22] MEDS: diazePAM 5 MG TABLET PO PRN (14:26)
[2024-04-22] MEDS: IBUPROFEN 600 MG TABLET (FP) PO PRN (18:03)
[2024-04-22] MEDS: CEPHALEXIN MONOHYDRATE 500 MG CAPSULE (UD) PO SCH (18:03)
[2024-04-22] MEDS: diazePAM 5 MG TABLET PO SCH (18:07)
[2024-04-22] MEDS: ONDANSETRON *ODT* 4 MG TABLET SL PRN (18:48)
[2024-04-22] MEDS: cloNIDine HCL 0.1 MG TABLET PO PRN (23:02)
[2024-04-22] MEDS: THIAMINE 100 MG TABLET PO SCH (23:02)
[2024-04-22] MEDS: MELATONIN 5 MG TABLETS PO SCH (23:11)
[2024-04-22] MEDS: BACITRACIN 0.9 GM PACKET TP ONE (23:45)
[2024-04-23] MEDS ORDERED: methaDONE HCL 10 MG TABLET PO ONE (09:15)
[2024-04-23] MEDS: cloNIDine HCL 0.1 MG TABLET PO SCH (10:55)
[2024-04-23] MEDS: PRENATAL VITAMINS W/ FOLIC ACID TABLET (FP) PO SCH (10:55)
[2024-04-23] MEDS: methaDONE HCL 10 MG TABLET PO ONE (10:55)
[2024-04-23] MEDS: NICOTINE 14 MG/24 HOURS TOPICAL PATCH TD SCH (11:14)
[2024-04-23] MEDS ORDERED: methaDONE HCL 10 MG TABLET PO PRN (11:15)
[2024-04-23 12:03] LABS: POTASSIUM 3.8 mmol/L (3.5-5.1)
[2024-04-23 12:13] LABS: CALCIUM 8.6 mg/dL (8.5-10.1)
[2024-04-23 12:14] LABS: ALBUMIN 3.7 g/dl (3.4-5.0)
[2024-04-23 12:17] LABS: CREATININE 0.7 mg/dL (0.55-1.3)
[2024-04-23 12:18] LABS: BILIRUBIN,TOTAL 0.8 mg/dL (0.2-1)
[2024-04-23 12:19] LABS: TOT PROT 9.3 g/dl (6.4-8.2)
[2024-04-23 12:25] LABS: HEMATOCRIT 37.2 % (35.4-49); HEMOGLOBIN 12.6 GM/dL (11.7-16.9); MCH 31.9 pg (25.7-33.7); MCHC 33.9 g/dl (32.0-35.9); MEAN CELL VOLUME 94.1 fl (80-96); RBC 3.95 M/mm3 (4.00-5.60); RDW 14.1 % (11.9-15.9); WHITE BLOOD COUNT 4.2 K/mm3 (4.0-10.0)
[2024-04-23] MEDS: DICYCLOMINE HCL 10 MG CAPSULE PO PRN (17:37)
[2024-04-23] MEDS: BISMUTH SUBSALICYLATE 262 MG/15 ML BTL PO PRN (17:38)
[2024-04-24] MEDS: diazePAM 5 MG TABLET PO SCH (05:33)
[2024-04-24] MEDS: methaDONE 40 MG, methaDONE 10 MG PO ONE (09:51)
[2024-04-24] MEDS ORDERED: methaDONE HCL 10 MG TABLET (FOR DETOX USE ONLY) PO ONE (10:00)
[2024-04-24] MEDS: METHOCARBAMOL 500 MG TABLET PO PRN (21:39)
[2024-04-25] MEDS: diazePAM 5 MG TABLET PO SCH (05:50)
[2024-04-25] MEDS: methaDONE 40 MG, methaDONE 20 MG PO ONE (09:46)
[2024-04-25] MEDS ORDERED: CEPHALEXIN MONOHYDRATE 500 MG CAPSULE (UD) PO SCH (10:00)
[2024-04-25] MEDS: cloNIDine HCL 0.1 MG TABLET PO PRN (22:03)
[2024-04-26] MEDS: methaDONE 40 MG, methaDONE 30 MG PO ONE (09:14)
[2024-04-26] MEDS ORDERED: methaDONE HCL 10 MG TABLET (FOR DETOX USE ONLY) PO ONE (10:00)
[2024-04-26] MEDS: FLU VACCINE (FLULAVAL) PF 45 MCG/0.5 ML SYRINGE 2024-2025 IM ONE (11:34)
[2024-04-26] MEDS: hydrOXYzine PAMOATE 25 MG CAPSULE (FP) PO PRN (17:17)
[2024-04-27] MEDS: methaDONE HCL 40 MG DISPERSABLE TABLET PO ONE (09:36)
[2024-04-27] MEDS: RIFAXIMIN 550 MG TABLET PO SCH (14:06)
[2024-04-27] MEDS: LACTULOSE 20 GM/30 ML UDC (FOR ORAL USE ONLY) PO SCH (14:06)
[2024-04-28] MEDS: ACETAMINOPHEN 325 MG TABLET (FP) PO PRN (03:20)
[2024-04-28 06:11] VITALS: RESP 16
[2024-04-28 08:50] VITALS: BP 141/77; PULSE 62; TEMP 98
[2024-04-28] MEDS: NALOXONE (NYS OPIOID OVERDOSE PROGRAM) 4 MG/0.1 ML SPRAY NS PRN (08:57)
[2024-04-28] MEDS: methaDONE 80 MG, methaDONE 10 MG PO ONE (09:06)
== END 2024-04-28 09:41 | disposition home or self-care (01) | DRG 773 ==
LOC: YASAS 11:33 → Y6N 13:56
PROVIDERS: ADMIT Allergy & Immunology; ATTEND Surgery
PROC: HZ2ZZZZ Detoxification Services for Substance Abuse Treatment (ICD-10-PCS; principal; 2024-04-22)
DX: F11.23 Opioid dependence with withdrawal (principal); F13.230 Sedative, hypnotic or anxiolytic dependence with withdrawal, uncomplicated; F10.10 Alcohol abuse, uncomplicated; F14.20 Cocaine dependence, uncomplicated; F17.210 Nicotine dependence, cigarettes, uncomplicated; F31.9 Bipolar disorder, unspecified; F43.10 Post-traumatic stress disorder, unspecified; E72.20 Disorder of urea cycle metabolism, unspecified; B18.2 Chronic viral hepatitis C; M54.50 Low back pain, unspecified; G89.29 Other chronic pain; R79.89 Other specified abnormal findings of blood chemistry; Z59.00 Homelessness unspecified
CPT/HCPCS: 36415; 80053; 80305; 80307; 82140; 85027; 85032; 86780; 90656; 93005; 93010; G0008; Q0162